=== PATIENT | female | born 1970 | race Caucasian/White ===

== ENCOUNTER 2022-05-18 12:51 | Emergency (ER) | payer SELFPAY ==
[2022-05-18] MEDS ORDERED: Sodium Chloride 0.9% 10 ML Syringe FLUSH PRN (12:59)
== END 2022-05-18 15:34 | disposition home or self-care (01) ==
LOC: JD.ED 12:51
DX: R07.89 Other chest pain (principal); R00.2 Palpitations
CPT/HCPCS: 36415; 71045; 80053; 83735; 83880; 84484; 85025; 85379; 85610; 85730; 93005; 93225; 93226; 99285; J3490; 93010; 99283